=== PATIENT | male | born 1950 | race African-American/Black ===

== ENCOUNTER 2021-09-04 05:20 | Emergency (ER) | payer MEDICARE, OTHER ==
[~2021-09-04] VITALS: Ht 182.9 cm; Wt 69.0 kg
[2021-09-04 06:05] LABS: BASOPHILS % 0.4 % (0.0-2.0); EOSINOPHILS % 0.3 % (0.0-5.0); HEMATOCRIT. 40.7 % (42.0-52.0); HEMOGLOBIN. 12.6 g/dL (14.0-18.0); LYMPHOCYTES % 10.7 % (20.0-50.0); MEAN CORPUSCULAR HEMOGLOBIN 28.3 pg (28.0-32.0); MEAN CORPUSCULAR VOLUME 91.4 fL (80.0-94.0); MEAN PLATELET VOLUME 8.3 fl (7.4-10.4); NEUTROPHILS % 80.6 % (40.0-76.0); PLATELET 316 x1000/uL (130-400); RED BLOOD CELL COUNT 4.46 mill/uL (4.7-6.1); RED CELL DISTRIBUTION WIDTH 14.9 % (11.6-14.6)
[2021-09-04 06:11] LABS: CHLORIDE 108 mEq/L (98-107)
[2021-09-04 06:18] LABS: ETHANOL BLOOD < 10 mg/dL
[2021-09-04] MEDS ORDERED: NALO4SPR BOTHNSTRLS (09:48)
[2021-09-04 10:10] VITALS: BP 139/85
== END 2021-09-04 10:32 | disposition home or self-care (01) ==
LOC: EDUNIT# 05:20 → ER 05:20
DX: T40.2X1A Poisoning by other opioids, accidental (unintentional), initial encounter (principal); F11.188 Opioid abuse with other opioid-induced disorder; R06.81 Apnea, not elsewhere classified; R03.0 Elevated blood-pressure reading, without diagnosis of hypertension; R73.9 Hyperglycemia, unspecified; D72.829 Elevated white blood cell count, unspecified; D64.9 Anemia, unspecified; Y92.89 Other specified places as the place of occurrence of the external cause
CPT/HCPCS: 36415; 80053; 80320; 85025; 99284; G0480